=== PATIENT | male | born 1950 | race Caucasian/White ===

== ENCOUNTER → 2020-06-27 | Day surgery (SDC) | payer MEDICARE, OTHER ==
[~2020-06-27] MED LIST: ASPIRIN EC81 MG PO; BYSTOLIC5 MG PO; CENTRUM SILVER1 EAC1 PO; CO Q-10200 MG PO; LIPITOR20 MG PO; NITROQUIK SL0.4 MG SL; NORCO 5-325 TA1 EACH PO; OLMESARTAN-HCT1 EAC1 PO; ONDANSETRON ODT8 MG PO; PRILOSEC20 MG PO; PROAIR HFA8.5 GM INH; VITAMIN B-121000 MC1 PO
[2020-06-27 08:04] LABS: HCT 40.9 % (42.0-52.0); MCH 31.5 pg (25.0-31.0); MCHC 34.2 g/dL (32.0-36.0); MCV 92.1 fL (78.0-100.0); MPV 8.9 fL (6.0-9.5); RBC 4.44 M/uL (4.70-6.00); RDW 12.4 % (11.5-14.0); WBC 9.9 K/uL (4.0-10.5)
[2020-06-27 08:26] LABS: ALBUMIN 3.5 g/dL (3.4-5.0); BILIRUBIN - TOTAL 0.6 mg/dL (0.2-1.0); BUN/CREAT RATIO (CALC) 18.8 RATIO; CREATININE 0.8 mg/dL (0.67-1.17); GLOBULIN (CALCULATION) 4.1 g/dL; POTASSIUM 4.3 mmol/L (3.5-5.1); TOTAL PROTEIN 7.6 g/dL (6.4-8.2)
== END | disposition home or self-care (01) ==
LOC: FAS 06:50
PROVIDERS: Surgery
DX: K43.0 Incisional hernia with obstruction, without gangrene (principal); K21.9 Gastro-esophageal reflux disease without esophagitis; I13.0 Hypertensive heart and chronic kidney disease with heart failure and stage 1 through stage 4 chronic kidney disease, or unspecified chronic kidney disease; I25.119 Atherosclerotic heart disease of native coronary artery with unspecified angina pectoris; I35.0 Nonrheumatic aortic (valve) stenosis; I50.9 Heart failure, unspecified; I25.2 Old myocardial infarction; N18.9 Chronic kidney disease, unspecified; J45.909 Unspecified asthma, uncomplicated; N52.9 Male erectile dysfunction, unspecified; Z98.890 Other specified postprocedural states; Z95.1 Presence of aortocoronary bypass graft; Z85.47 Personal history of malignant neoplasm of testis; Z20.822 Contact with and (suspected) exposure to COVID-19
CPT/HCPCS: 36415; 80053; 93005; J0690; J1100; J2250; J2405; J2704; J3010; J7120